=== PATIENT | male | born 1960 | race African-American/Black ===

== ENCOUNTER 2018-03-06 21:49 | Emergency (ER) | payer OTHER ==
[~2018-03-06] VITALS: Ht 162.6 cm; Wt 68.0 kg
[2018-03-06] MEDS ORDERED: MOBIC15 MG PO (22:29)
[2018-03-06 22:56] VITALS: BP 95/58
== END 2018-03-06 22:58 | disposition home or self-care (01) ==
LOC: ER 21:49
DX: M17.12 Unilateral primary osteoarthritis, left knee (principal); G89.29 Other chronic pain; F17.210 Nicotine dependence, cigarettes, uncomplicated

== ENCOUNTER 2020-04-03 20:34 | Emergency (ER) | payer OTHER ==
[~2020-04-03] VITALS: Ht 170.2 cm; Wt 72.6 kg
[~2020-04-03 20:34] MED LIST: MOBIC15 MG PO
[2020-04-03 23:09] VITALS: BP 100/63
== END 2020-04-03 23:28 | disposition home or self-care (01) ==
LOC: ER 20:34
DX: M25.562 Pain in left knee (principal); F17.210 Nicotine dependence, cigarettes, uncomplicated; Z79.899 Other long term (current) drug therapy; W18.39XA Other fall on same level, initial encounter; Y93.89 Activity, other specified; Y92.89 Other specified places as the place of occurrence of the external cause; Y99.8 Other external cause status